=== PATIENT | female | born 1985 | race Caucasian/White ===

== ENCOUNTER 2016-12-14 17:58 | Emergency (ER) | payer OTHER ==
[~2016-12-14 17:58] MED LIST: AMOXICILLIN PO; BACTRIM DS TABL1 TA1 PO; CHLORHEXIDINE; CIPRO PO; FIORICET 50-321 EACH PO; FLAGYL PO; IBUPROFEN800 MG PO; IRON325 ( 651 PO; NO MEDICATIONS; ORUDIS75 M1 PO; PEN-VEE K PO; PREDNISONE50 MG PO; PRENATAL1 TA1 PO; ULTRAM PO; ZOFRAN ODT4 MG PO
== END 2016-12-14 18:23 | disposition home or self-care (01) ==
LOC: CFTX 17:58
DX: J06.9 Acute upper respiratory infection, unspecified (principal); F41.9 Anxiety disorder, unspecified; J45.909 Unspecified asthma, uncomplicated
CPT/HCPCS: 87651; 99282